=== PATIENT | female | born 1995 | race Caucasian/White ===

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

== ENCOUNTER 2017-08-28 10:33 | Emergency (ER) | payer OTHER ==
[~2017-08-28] VITALS: Ht 163.8 cm; Wt 57.4 kg
[2017-08-28 10:35] VITALS: TEMP 36.6; Ht 163.8 cm; Wt 57.4 kg
[2017-08-28] MEDS ORDERED: RANITIDINE HCL 150 MG TAB PO ONE (11:45)
--- NOTE | 2017-08-28 12:25 | EMERGENCY ROOM VISIT NOTE ---
History Report prepared by Alex: Latonia Munguia Under the Supervision of: Dr. Stu Christianson M.D. First contact with patient: 11:23 Chief Complaint: RASH Stated Complaint: RASH` History of Present Illness The patient is a 22 year old female who presents to the Emergency Room with complaints of persistent rash that started yesterday morning. The patient states that she was started on Bactrim for a UTI 8 days ago. She states that she had a urine culture done by [facility]. The patient states that yesterday morning she woke with a rash on her elbows. She states that the areas started as small raised white bumps, noting that they were itchy. The patient states that the rash spread to her abdomen and back. She denies ever having symptoms like this in the past. The patient states that she tried taking Benadryl yesterday without relief of her symptoms. She states that she took a hot shower that worsened her symptoms. The patient states that she has been steroids in the past. She denies any other new medications, soaps, detergents, or different foods. The patient states that when she was diagnosed with her UTI she was experiencing pelvic pain and some slight burning with urination. She states that she is still experiencing pelvic pain. The patient denies any history of ovarian cyst. She states that with her urine cultures she was tested for STDs in her urine which came back clean. The patient states that she never had a pelvic exam in the past and notes that she is sexually active. Source of History: patient Onset: yesterday morning Position: other (global) Quality: other (rash - itchy) Timing: other (persistent) Modifying Factors (Worsening): other (hot shower) Note: Associated Symptoms: Pelvic pain Review of Systems All systems have been listed, reviewed, and are negative other than those previously mentioned. Please see Additional Medical History Sheet. Past Medical & Surgical Surgical Problems: (1) S/P wisdom tooth extraction Family History Diabetes mellitus Social History Smoking Status: Never Smoker Alcohol Use: occasionally Marital Status: single Housing Status: lives with family Occupation Status: [employer] student Current/Historical Medications Scheduled Prednisone (Prednisone), 20 MG PO BID Ranitidine Hcl (Zantac), 150 MG PO BID Scheduled PRN Diphenhydramine Hcl (Benadryl Allergy), 50 MG PO Q4H PRN for hives Allergies Coded Allergies: Sulfa Antibiotics (Unverified Allergy, Intermediate, RASH, 08/28/17) Physical Exam Vital Signs Date Time Temp Pulse Resp B/P (MAP) Pulse Ox O2 Delivery O2 Flow Rate FiO2 08/28/17 14:01 80 18 106/65 100 Room Air 08/28/17 13:26 80 18 115/77 100 Room Air 08/28/17 13:00 81 18 105/67 100 Room Air 08/28/17 12:02 85 18 121/71 98 Room Air 08/28/17 10:35 36.6 103 18 12/74 98 Room Air Physical Exam GENERAL: Patient awake, alert, oriented x 3. Patient follows commands. Patient does not appear toxic. Patient is adequately hydrated and well- nourished. SKIN: Urticaria primarily over the arms and legs. HEENT: Normal head, pupils equal, reactive to light and accommodation. Ears normal. Oral cavity and posterior pharynx appear normal, tongue and uvula are not swollen, no oral lesions. Neck: Without adenopathy, no neck vein distention. LUNGS: Clear to auscultation. No wheezes, no rales, no rhonchi. HEART: No murmurs. No gallops. No rubs ABDOMEN: Soft, vague suprapubic tenderness. EXTREMITIES: No signs of trauma. No pedal or pretibial edema. No calf or thigh tenderness. NEUROLOGIC: Cranial nerves II-XII within normal limits. No gross motor sensory function deficits. Medical Decision & Procedures Laboratory Results Test 08/28/17 11:40 Urine Color YELLOW Urine Appearance CLEAR (CLEAR) Urine pH 6.0 (4.5-7.5) Urine Specific [place] 1.024 (1.000-1.030) Urine Protein NEG (NEG) Urine Glucose (UA) NEG (NEG) Urine Ketones 1+ (NEG) Urine Occult Blood NEG (NEG) Urine Nitrite NEG (NEG) Urine Bilirubin NEG (NEG) Urine Urobilinogen NEG (NEG) Urine Leukocyte Esterase SMALL (NEG) Urine WBC (Auto) 5-10 /hpf (0-5) Urine RBC (Auto) 0-4 /hpf (0-4) Urine Hyaline Casts (Auto) 1-5 /lpf (0-5) Urine Epithelial Cells (Auto) >30 /lpf (0-5) Urine Bacteria (Auto) 1+ (NEG) Urine Test NEG (NEG) Laboratory results as stated above per my review. Medications Administered Medications (Trade) Dose Ordered Sig/Naty Route Start Time Stop Time Status Last Admin Dose Admin Prednisone (PredniSONE TAB) 40 mg NOW STAT PO 08/28/17 11:34 08/28/17 11:36 DC 08/28/17 11:59 40 MG Ranitidine HCl (zANTac TAB) 150 mg NOW ONCE PO 08/28/17 11:45 08/28/17 11:46 DC 08/28/17 11:59 150 MG Diphenhydramine HCl (Benadryl Cap) 50 mg NOW ONCE PO 08/28/17 11:45 08/28/17 11:46 DC 08/28/17 11:58 50 MG ED Course 1124: Past medical records reviewed. The patient was evaluated in room C5. A complete history and physical examination was performed. 1134: Ordered Prednisone Tab 40 mg PO. 1145: Ordered Benadryl Cap 50 mg PO, Zantac Tab 150 mg PO. 1410: I reevaluated the patient and she is resting comfortably. I discussed the exam findings with her and I discussed the treatment plan. She verbalized complete understanding and agreement. She is ready to go home. Medical Decision Nurses notes reviewed. Medical history sheet reviewed. Differential diagnosis includes but is not limited to: allergic reaction, ovarian cyst, cystitis. The patient is here with urticaria most likely secondary to Bactrim. She just completed the course. The patient states that she still has some suprapubic tenderness. Initially the clean-catch urine was obtained and evaluated but it has significant numbers epithelial cells therefore a catheterized culture was obtained. The patient will not be placed on antibiotic yet. The patient will be encouraged to continue prednisone and Benadryl and Zantac. Medication Reconcilliation Current Medication List: was personally reviewed by me Impression Primary Impression: Drug reaction Scribe Attestation The scribe's documentation has been prepared under my direction and personally reviewed by me in its entirety. I confirm that the note above accurately reflects all work, treatment, procedures, and medical decision making performed by me. Departure Information Dispostion Home / Self-Care Prescriptions Diphenhydramine Hcl (BENADRYL ALLERGY) 25 Mg Cap 50 MG PO Q4H Y for hives, #20 CAP Prov: Ziff, Stu,M.D. 08/28/17 Ranitidine Hcl (ZANTAC) 150 Mg Tab 150 MG PO BID for 3 Days, #6 TAB Prov: Stu Christianson M.D. 08/28/17 Prednisone (Prednisone) 20 Mg Tab 20 MG PO BID for 3 Days, #6 TAB Prov: Stu Christianson M.D. 08/28/17 Referrals No Doctor, Assigned (PCP) Forms HOME CARE DOCUMENTATION FORM, IMPORTANT VISIT INFORMATION Patient Instructions [facility] Additional Instructions Prednisone twice a day for 3 days. Zantac 150 mg twice a day for 3 days. Benadryl 50 mg every 4 hours as needed for itching. Benadryl causes drowsiness. Do not drive while taking Benadryl. A urine culture is pending. We will call you if results indicate a need for more antibiotics.
[2017-08-28 12:38] LABS: URINE APPEARANCE CLEAR (CLEAR); URINE BILIRUBIN NEG (NEG); URINE COLOR YELLOW; URINE EPITHELIAL CELL AUTO >30 /lpf (0-5); URINE NITRITE NEG (NEG); URINE SPECIFIC GRAVITY 1.024 (1.000-1.030); UROBILINOGEN NEG (NEG); ZZUR CULT IF INDIC CLEAN CATCH YES
[2017-08-28 12:39] LABS: MANUAL MICROSCOPIC REQUIRED? NO; REVIEW REQ? NO
[2017-08-28] MEDS ORDERED: PRED20TA PO (14:22)
[2017-08-28] MEDS ORDERED: RANI150T3 PO (14:22)
[2017-08-28] MEDS ORDERED: DIPH25CA65 PO (14:22)
[2017-08-28 14:46] VITALS: BP 106/65; PULSE 80; O2SAT 100
== END 2017-08-28 14:46 | disposition home or self-care (01) ==
LOC: C.EDB 10:34 → C.EDC 14:46
DX: L50.9 Urticaria, unspecified (principal); T36.8X5A Adverse effect of other systemic antibiotics, initial encounter; Z83.3 Family history of diabetes mellitus